=== PATIENT | female | born 1980 ===

== ENCOUNTER 2018-08-08 12:28 | Emergency (ER) | payer MEDICAID ==
[2018-08-08 12:43] VITALS: BMI 41.5
[2018-08-08 12:47] VITALS: RESP 18; O2SAT 99
--- NOTE | 2018-08-08 13:59 | C.PDOC ---
History Of Present Illness 38 year old female presents to the ED for evaluation of epigastric abdominal pain, dizziness, lack of energy, vomiting and diarrhea which began one week ago. Patient states her last menstrual period was 06/29/18 and she had a positive home test. She denies fever. Chief Complaint (Nursing): Abdominal Pain History Per: Patient History/Exam Limitations: no limitations Onset/Duration Of Symptoms: Days Current Symptoms Are (Timing): Still Present Location Of Pain/Discomfort: Epigastric Quality Of Discomfort: "Pain" Additional History Per: Patient Last Menstral Period: 06/29/18 Past Medical History Reviewed: Historical Data, Nursing Documentation, Vital Signs Vital Signs: Last Vital Signs Temp 98.1 F 08/08/18 12:42 Pulse 90 08/08/18 12:42 Resp 18 08/08/18 12:42 BP 119/81 08/08/18 12:42 Pulse Ox 99 08/08/18 12:42 - Medical History PMH: No Chronic Diseases Surgical History: Cholecystectomy Family History: States: Unknown Family Hx - Social History Hx Alcohol Use: No Hx Substance Use: No - Immunization History Hx Tetanus Toxoid Vaccination: No Hx Influenza Vaccination: No Hx Pneumococcal Vaccination: No Review Of Systems Constitutional: Negative for: Fever Gastrointestinal: Positive for: Vomiting, Abdominal Pain (epigastric ), Diarrhea Neurological: Positive for: Dizziness Physical Exam - Physical Exam Appears: Non-toxic, No Acute Distress Skin: Normal Color, Warm, Dry Head: Atraumatic, Normacephalic Eye(s): bilateral: Normal Inspection Oral Mucosa: Moist Neck: Supple Chest: Symmetrical, No Deformity, No Tenderness Cardiovascular: Rhythm Regular, No Murmur Respiratory: Normal Breath Sounds, No Rales, No Rhonchi, No Wheezing Gastrointestinal/Abdominal: Soft, Tenderness (epigastric ), No Guarding, No Rebound Extremity: Normal ROM, Capillary Refill (less than 2 seconds ) Neurological/Psych: Oriented x3, Normal Speech, Normal Cognition ED Course And Treatment - Laboratory Results Result Diagrams: 08/08/18 14:07 08/08/18 14:07 O2 Sat by Pulse Oximetry: 99 (on RA ) Pulse Ox Interpretation: Normal Medical Decision Making Medical Decision Making: Impression: 38 year old female with epigastric abdominal pain, vomiting, d iarrhea, dizziness Plan: * bloodwork * urinalysis * reassess and disposition Progress: bloodwork and urinalysis ordered and reviewed. Explained to the patient that she has a UTI. Patient recommended a clinic f/u with OB, patient given prescription for antibiotics and Zofran. Patient instructed to stop taking Ibuprofen for pain, and to only take Tylenol. Disposition Counseled Patient/Family Regarding: Studies Performed, Diagnosis, Need For Followup - Disposition Referrals: [facility] [Outside] [facility] [Outside] [facility] [place] [Outside] Disposition: HOME/ ROUTINE Disposition Time: 18:00 Condition: STABLE Additional Instructions: CHRISTIAN CORRAL, thank you for letting us take care of you today. Your provider was Luisa Roth MD and you were treated for STOMACH PAIN. The emergency medical care you received today was directed at your acute symptoms. If you were prescribed any medication, please fill it and take as directed. It may take several days for your symptoms to resolve. Return to the Emergency Department if your symptoms worsen, do not improve, or if you have any other problems. Please contact your doctor or call one of the physicians/clinics you have been referred to that are listed on the Patient Visit Information form that is included in your discharge packet. You need to make a follow up appointment in 2-3 days. Bring any paperwork you were given at discharge with you along with any medications you are taking to your follow up visit. Our treatment cannot replace ongoing medical care by a primary care provider outside of the emergency department. Thank you for allowing the [facility] team to be part of your care today. If you had an X-Ray or CT scan: A Radiologist will review the ED reading if any change in treatment is needed we will contact you. If you had a blood, urine, or wound culture: It will take several days for the r esults, if any change in treatment is needed we will contact you. If you had an STI test: It will take 48 hours for the results. Please call after 1 week if you have not heard back. Prescriptions: Nitrofurantoin Macrocrystal [Nitrofurantoin] 100 mg PO BID #14 capsule Ondansetron ODT [Zofran ODT] 4 mg PO BID PRN #20 odt PRN Reason: Nausea/Vomiting Instructions: Stomach Pain in Early , Urinary Tract Infection, Adult (DC), Nausea and Vomiting, Adult (DC), Diarrhea in Adolescents and Adults Forms: Gen Discharge Inst Romanian, [facility] (Romanian) Print Language: AZERBAIJANI - POA Present On Arrival: None - Clinical Impression Clinical Impression: Abdominal pain, Abdominal pain in , Nausea, Vomiting, UTI (urinary tract infection) in in first trimester - Scribe Statement The provider has reviewed the documentation as recorded by the Scribe (Danna Burks) Provider Attestation: All medical record entries made by the Scribe were at my direction and personally dictated by me. I have reviewed the chart and agree that the record accurately reflects my personal performance of the history, physical exam, medical decision making, and the department course for this patient. I have also personally directed, reviewed, and agree with the discharge instructions and disposition.
[2018-08-08 14:11] LABS: HEMOGLOBIN 13.3 g/dL (11.0-16.0); MEAN CELL VOLUME 90.6 fL (81.0-99.0); MEAN CORPUSCULAR HEMOGLOBIN 31.2 pg (27.0-31.0); MEAN CORPUSCULAR HGB CONC 34.4 g/dL (33.0-37.0); MEAN PLATELET VOLUME 10.3 fL (7.2-11.7); RBC 4.28 Mil/uL (3.80-5.20); RED CELL DISTRIBUTION WIDTH 13.4 % (11.5-14.5); WHITE BLOOD COUNT 6.1 K/uL (4.8-10.8)
[2018-08-08 14:15] LABS: HCG,QUALITATIVE URINE POSITIVE (NEGATIVE)
[2018-08-08 14:24] LABS: SQUAMOUS EPITHIAL 7 /hpf (0-5); URINE BACTERIA RARE (<OCC); URINE BILIRUBIN NEGATIVE (NEGATIVE); URINE BLOOD 2+ (NEGATIVE); URINE CLARITY Clear (Clear); URINE COLOR Yellow (YELLOW); URINE GLUCOSE (UA) NORMAL (Normal); URINE LEUKOCYTE ESTERASE 3+ Leu/uL (Negative); URINE PROTEIN NEGATIVE (NEGATIVE); URINE UROBILINOGEN NORMAL mg/dL (0.2-1.0)
[2018-08-08 14:27] LABS: ALB/GLOB RATIO 1.5 (1.0-2.1); ALBUMIN 4.7 g/dL (3.5-5.0); ALT/SGPT 55 U/L (9-52); AST/SGOT 28 U/L (14-36); BLOOD UREA NITROGEN 11 mg/dL (7-17); CALCIUM 8.9 mg/dl (8.6-10.4); GFR NON-AFRICAN AMERICAN > 60; LIPASE 63 U/L (23-300)
--- NOTE | 2018-08-08 17:54 | US ---
Indication: abdominal pain/preg Comparison: None available Technique: 1st trimester ultrasound Findings: Uterus measures approximately 10.1 x 5.8 x 3.5 cm. Anteverted. Cervix length measures approximately 3.1 cm. There is a single intrauterine fetus present. 2 mm yolk sac. The gestational sac measures 1.4 cm and is compatible with a gestational age of 5 weeks 4 days. The crown-rump length measures 0.2 cm and is compatible with a gestational age of 5 weeks 5 days. heart motion is not detected at this time. The right ovary measures 3.5 x 2.3 x 3.0 cm and contains 1.6 cm right ovarian cyst. The left ovary measures 2.3 x 1.5 x 2.2 cm. Blood flow was demonstrated to both ovaries. Impression: Single intrauterine with estimated gestational age 5 weeks 4 days by gestational sac calculation and 5 weeks 5 days by crown-rump length calculation. heart rate is not detected at this time. Findings presumed related to early stage of . Recommend clinical correlation and short-term follow-up ultrasound. Advise an anomaly screen at 16-18 weeks gestational age
[2018-08-08 18:57] VITALS: BP 120/80; PULSE 88; TEMP 98.8
== END 2018-08-08 18:55 | disposition home or self-care (01) ==
LOC: C.ER 12:28
DX: O23.41 Unspecified infection of urinary tract in pregnancy, first trimester (principal); O26.891 Other specified pregnancy related conditions, first trimester; R10.13 Epigastric pain; O21.9 Vomiting of pregnancy, unspecified; Z3A.01 Less than 8 weeks gestation of pregnancy